=== PATIENT | male | born 1965 | race Caucasian/White ===

== ENCOUNTER 2020-11-17 11:16 | Emergency (ER) | payer OTHER, MEDICAID ==
[~2020-11-17] VITALS: Ht 167.6 cm; Wt 74.4 kg
[2020-11-17 11:27] VITALS: BP 117/96
--- NOTE | 2020-11-17 11:35 | NUR ---
PT AMBULATED TO BED 11. STEADY GAIT.
--- NOTE | 2020-11-17 12:07 | NUR ---
55/M presents to ED with c/o of high blood sugar. Patient states he has diabetes but has not taken his Metformin in over one year because it makes him feel "dizzy." Patient states yesterday his was checking her blood sugar and he decided to check his as well and it read too high. Patient denies dizziness, complaining of urinary frequency and excessive thirst. Patient has no other complaints right now and states he just wanted to be "safe." Accucheck on arrival was 477.
[2020-11-17] MEDS ORDERED: NACL 0.9% 1,000 ML IV SCH (12:20)
[2020-11-17 12:54] LABS: BASOPHILS % (AUTO) 0.4 % (0.0-2.0); EOSINOPHILS # (AUTO) 0.2 K/uL (0-0.4); HEMATOCRIT 43.4 % (36-52); HEMOGLOBIN 15.2 g/dL (12.0-18.0); LYMPHOCYTES # (AUTO) 2.4 K/uL (2.0-11.5); LYMPHOCYTES % (AUTO) 38.7 % (20.5-51.1); MEAN CORPUSCULAR HEMOGLOBIN 30 pg (27-31); MEAN CORPUSCULAR HGB CONC 35 g/dL (33-37); MEAN CORPUSCULAR VOLUME 85.8 fL (80-94); MONOCYTES # (AUTO) 0.3 K/uL (0.8-1.0); MONOCYTES % (AUTO) 4.7 % (1.7-9.3); NEUTROPHILS # (AUTO) 3.2 K/uL (1.8-7.7); NEUTROPHILS % (AUTO) 53.2 % (42.2-75.2); PLATELET COUNT (AUTO) 244 K/uL (140-450); RED BLOOD CELL COUNT(AUTO) 5.06 MIL/uL (4.20-6.10); RED CELL DISTRIBUTION WIDTH 12.1 % (11.6-13.7); WHITE BLOOD COUNT (AUTO) 6.1 K/uL (4.8-10.8)
--- NOTE | 2020-11-17 13:00 | NUR ---
Patient appears to be resting, no complaints at this time
[2020-11-17 13:10] LABS: ALBUMIN 3.8 g/dL (3.4-5.0); ANION GAP 12.4 (8-16); CARBON DIOXIDE 25.8 mmol/L (21-32); POTASSIUM 4.2 mmol/L (3.5-5.1); TOTAL BILIRUBIN 0.5 mg/dL (0.0-1.0)
[2020-11-17] MEDS ORDERED: INSULIN REGULAR, HUMAN 100 UNIT/ML VIAL SUBQ ONE (13:35)
[2020-11-17] MEDS ORDERED: NACL 0.9% 1,000 ML IV ONE (13:35)
[2020-11-17] MEDS ORDERED: METF500T2 PO (14:45)
--- NOTE | 2020-11-17 15:00 | NUR ---
Patient discharged with v/s stable. Written and verbal after care instructions given and explained. Patient alert, oriented and verbalized understanding of instructions. Ambulatory with steady gait. All questions addressed prior to discharge. ID band removed. Patient advised to follow up with PMD. Rx of Metformin given. Patient educated on indication of medication including possible reaction and side effects. Opportunity to ask questions provided and answered.
[2020-11-17 15:01] VITALS: BP 139/80
== END 2020-11-17 15:00 | disposition home or self-care (01) ==
LOC: MED 11:16
DX: E11.65 Type 2 diabetes mellitus with hyperglycemia (principal); I10 Essential (primary) hypertension
CPT/HCPCS: 36415; 80053; 81002; 82948; 85025; 93005; 96360; 96361; 96372; 99284; J1815; J7030

== ENCOUNTER 2021-09-01 10:45 | Emergency (ER) | payer OTHER, MEDICAID ==
[~2021-09-01] VITALS: Ht 167.6 cm; Wt 69.4 kg
[~2021-09-01 10:45] MED LIST: METF500T2 PO
[2021-09-01 10:49] VITALS: BP 133/68
--- NOTE | 2021-09-01 10:58 | NUR ---
Patient ambulated to bed 07 with steady/even gait.
--- NOTE | 2021-09-01 11:05 | NUR ---
Patient states last tetanus shot unknown.
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
--- NOTE | 2021-09-01 11:29 | NUR ---
DR DE LA CRUZ AT BEDSIDE EVALUATING PT
--- NOTE | 2021-09-01 11:36 | NUR ---
TDAP consent form signed
--- NOTE | 2021-09-01 12:15 | NUR ---
Left upper arm laceration irrigated with 90mL of 0.9% NS. No debris noted. Dermabond applied to laceration and checked/cleared by Dr. Whitehead. Nonadherent pad applied secured with tape.
--- NOTE | 2021-09-01 12:19 | NUR ---
Patient discharged with v/s stable. Written and verbal after care instructions given and explained. Patient verbalized understanding. Ambulatory with steady gait. All questions addressed prior to discharge. Advised to follow up with PMD.
== END 2021-09-01 12:19 | disposition home or self-care (01) ==
LOC: MED 10:45
DX: S41.112A Laceration without foreign body of left upper arm, initial encounter (principal); E11.9 Type 2 diabetes mellitus without complications; I10 Essential (primary) hypertension; Z79.84 Long term (current) use of oral hypoglycemic drugs; X99.8XXA Assault by other sharp object, initial encounter; Y93.89 Activity, other specified; Y92.511 Restaurant or cafe as the place of occurrence of the external cause; Y99.8 Other external cause status
CPT/HCPCS: 12001; 90471; 90715; 99283

== ENCOUNTER 2021-09-23 09:07 | Emergency (ER) | payer OTHER, MEDICAID ==
[~2021-09-23] VITALS: Ht 167.6 cm; Wt 69.4 kg
[2021-09-23 09:08] VITALS: BP 115/72
--- NOTE | 2021-09-23 09:15 | NUR ---
56 y/o M c/o pustule in perineal area x 3 days. Patient A&Ox4, ambulatory, admits to squeezing discharge from pustule. Pain 5/10, states tolerable at this time. 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 Denies fever, chills, trauma/injury. Bed locked in lowest position, side rails x1. denies fever. pmh: dm, htn meds: metformin, unrecalled htn meds nka
--- NOTE | 2021-09-23 09:15 | NUR ---
Patient ambulated to bed 12 with steady/even gait.
[2021-09-23] MEDS ORDERED: IBUPROFEN 600 MG TAB PO ONE (09:55)
--- NOTE | 2021-09-23 09:55 | NUR ---
Dr. Reed is evaluating patient at bedside
--- NOTE | 2021-09-23 10:06 | NUR ---
US tech at bedside
[2021-09-23 10:48] LABS: ALBUMIN 3.4 g/dL (3.4-5.0); ANION GAP 12.5 (8-16); CARBON DIOXIDE 26.6 mmol/L (21-32); CREATININE 0.9 mg/dL (0.6-1.3); POTASSIUM 4.1 mmol/L (3.5-5.1); TOTAL BILIRUBIN 0.7 mg/dL (0.0-1.0)
--- NOTE | 2021-09-23 10:51 | NUR ---
US tech at bedside
[2021-09-23 11:18] LABS: BASOPHILS % (AUTO) 0.2 % (0.0-2.0); EOSINOPHILS # (AUTO) 0.1 K/uL (0-0.4); EOSINOPHILS % (AUTO) 1.5 % (0.0-4.0); HEMATOCRIT 40.7 % (36-52); LYMPHOCYTES # (AUTO) 2.4 K/uL (2.0-11.5); LYMPHOCYTES % (AUTO) 27.4 % (20.5-51.1); MEAN CORPUSCULAR HEMOGLOBIN 30 pg (27-31); MEAN CORPUSCULAR HGB CONC 34 g/dL (33-37); MEAN CORPUSCULAR VOLUME 86.8 fL (80-94); MONOCYTES # (AUTO) 0.5 K/uL (0.8-1.0); MONOCYTES % (AUTO) 5.8 % (1.7-9.3); NEUTROPHILS # (AUTO) 5.7 K/uL (1.8-7.7); NEUTROPHILS % (AUTO) 65.1 % (42.2-75.2); PLATELET COUNT (AUTO) 293 K/uL (140-450); RED BLOOD CELL COUNT(AUTO) 4.69 MIL/uL (4.20-6.10); RED CELL DISTRIBUTION WIDTH 12.3 % (11.6-13.7); WHITE BLOOD COUNT (AUTO) 8.8 K/uL (4.8-10.8)
[2021-09-23] MEDS ORDERED: LIDOCAINE/PRILOCAINE 2.5% 5 GM TUBE TP ONE ×2 (11:40→11:43)
--- NOTE | 2021-09-23 11:54 | NUR ---
Dr. Reed is at bedside for procedure.
[2021-09-23 13:20] VITALS: BP 118/68
[2021-09-23] MEDS ORDERED: CLIN300C2 PO (13:22)
[2021-09-23] MEDS ORDERED: IBUP-2213 PO (13:24)
--- NOTE | 2021-09-23 13:31 | NUR ---
Patient discharged with v/s stable. Written and verbal after care instructions given and explained for Skin Abscess. Patient alert, oriented and verbalized understanding of instructions. Ambulatory with steady gait. All questions addressed prior to discharge. ID band removed. Patient advised to follow up with PMD. Rx of Ibuprofen, Clindamycin Hcl given. Patient educated on indication of medication including possible reaction and side effects. Opportunity to ask questions provided and answered.
== END 2021-09-23 13:31 | disposition home or self-care (01) ==
LOC: MED 09:07
DX: L02.215 Cutaneous abscess of perineum (principal); E11.9 Type 2 diabetes mellitus without complications
CPT/HCPCS: 10160; 36415; 76870; 80053; 81002; 85025; 99284; Q0092